=== PATIENT | male | born 1950 | race Asian ===

== ENCOUNTER 2018-09-08 10:23 | Day surgery (SDC) | payer OTHER ==
[~2018-09-08] VITALS: Ht 170.2 cm; Wt 81.6 kg
[2018-09-08] VITALS (8 sets, daily range): BP systolic 118–128; BP diastolic 74–86
--- NOTE | 2018-09-08 07:19 | Pre-Procedure Note/Attestation ---
Pre-Procedure Note/Attestation Complete Prior to Procedure Planned Procedure: left Procedure Narrative: Removal of cataract and placement of intraocular lens left eye Indications for Procedure Pre-Operative Diagnosis: Cataract, left eye Attestation I attest that I discussed the nature of the procedure; its benefits; risks and complications; and alternatives (and the risks and benefits of such alternatives ), prior to the procedure, with the patient (or the patient's legal equal opportunity representative). I attest that, if there was a reasonable possibility of needing a blood transfusion, the patient (or the patient's legal equal opportunity representative) was given the [facility] standardized written summary, pursuant to the Scooter Xavi Blood Safety Act ([place] Health and Safety Code # 1645, as amended). I attest that I re-evaluated the patient just prior to the surgery and that there has been no change in the patient's H&P, except as documented below: Víctor Will MD Sep 08, 2018 07:19
[2018-09-08] MEDS ORDERED: Ciprofloxacin Opth Soln 2.5ml ONE (10:59)
[2018-09-08] MEDS ORDERED: Tropicamide 1% Opth 15ml Soln ONE (10:59)
[2018-09-08] MEDS ORDERED: Phenylephrine 10% Opth Soln 5ml ONE (10:59)
[2018-09-08] MEDS ORDERED: Tobradex Opth Susp 2.5ml ONE (10:59)
[2018-09-08] MEDS ORDERED: Cyclopentolate 1% Opth Sol 2ml ONE (10:59)
[2018-09-08] MEDS ORDERED: Akten 3.5% 1ml Btl ONE (10:59)
[2018-09-08] MEDS: Tropicamide 1% Opth 15ml Soln LEFT EYE SCH ×3 (11:02→11:22)
[2018-09-08] MEDS: Akten 3.5% 1ml Btl LEFT EYE SCH ×3 (11:03→11:23)
[2018-09-08] MEDS: Tobradex Opth Susp 2.5ml LEFT EYE SCH ×3 (11:03→11:22)
[2018-09-08] MEDS: Ciprofloxacin Opth Soln 2.5ml LEFT EYE SCH ×3 (11:03→11:23)
[2018-09-08] MEDS: Phenylephrine 10% Opth Soln 5ml LEFT EYE SCH ×3 (11:03→11:22)
[2018-09-08] MEDS: Cyclopentolate 1% Opth Sol 2ml LEFT EYE SCH ×3 (11:03→11:22)
[2018-09-08 11:31] LABS: BASOPHILS % (AUTO) 1.3 % (0.0-2.0); EOSINOPHILS % (AUTO) 3.2 % (0.0-3.0); HEMATOCRIT 46.7 % (42.0-52.0); HEMOGLOBIN 14.9 G/DL (14.2-18.0); LYMPHOCYTES % (AUTO) 25.6 % (20.0-45.0); MEAN CORPUSCULAR VOLUME 95 FL (80-99); MONOCYTES % (AUTO) 8.2 % (1.0-10.0); NEUTROPHILS % (AUTO) 61.7 % (45.0-75.0); PLATELET COUNT 220 K/UL (150-450); RED BLOOD COUNT 4.93 M/UL (4.70-6.10); RED CELL DISTRIBUTION WIDTH 11.5 % (11.6-14.8); WHITE BLOOD COUNT 6.5 K/UL (4.8-10.8)
[2018-09-08] MEDS ORDERED: Pred Forte 1% Opth Susp 1ml ONE (11:33)
[2018-09-08] MEDS ORDERED: Dexamethasone 4mg/ml vial ONE (11:33)
[2018-09-08] MEDS ORDERED: Lidocaine 1% MPF 10mg/ml 5ml ONE ×2 (11:33→12:05)
[2018-09-08] MEDS ORDERED: Lidocaine 4% Amp ONE (11:33)
[2018-09-08] MEDS ORDERED: Carbachol 0.01% Op Soln 1.5ml vial ONE (11:33)
[2018-09-08] MEDS ORDERED: Maxitrol Opth Oint 3.5gm ONE (11:33)
[2018-09-08] MEDS ORDERED: EPINEPHrine 1mg/1ml Amp ONE (11:33)
[2018-09-08] MEDS ORDERED: Tetracaine 0.5% Opth 4ml Soln ONE (11:34)
[2018-09-08] MEDS ORDERED: Bupivacaine 0.75% 30ml vial INJ ONE (11:34)
[2018-09-08] MEDS ORDERED: BSS 15ml BTL ONE (11:34)
[2018-09-08] MEDS ORDERED: BSS 500ml btl ONE (11:34)
[2018-09-08] MEDS ORDERED: Povidone-Iodine 5% opth solution ONE (11:34)
[2018-09-08] MEDS ORDERED: Sodium Hyaluronate 10 mg/ml 0.85ml ONE ×2 (11:34→13:07)
[2018-09-08 11:38] LABS: ANION GAP 9 mmol/L (5-15); BLOOD UREA NITROGEN 19 mg/dL (7-18); CALCIUM 9.2 MG/DL (8.5-10.1); CARBON DIOXIDE 26 MMOL/L (21-32); CHLORIDE 105 MMOL/L (98-107); SODIUM 140 MMOL/L (136-145)
[2018-09-08] MEDS ORDERED: LOSARTAN POTASS50 MG ORAL (11:48)
[2018-09-08] MEDS ORDERED: PROBENECID PO (11:48)
[2018-09-08] MEDS ORDERED: CRESTOR40 MG ORAL (11:48)
[2018-09-08] MEDS ORDERED: Fluorescein Strips ONE (11:55)
[2018-09-08] MEDS ORDERED: LR 1000ml 1,000 ML IVLG SCH (11:59)
[2018-09-08] MEDS ORDERED: LR 1000ml ONE (12:00)
[2018-09-08] MEDS ORDERED: Hydromorphone 0.5mg/0.5ml inj IVP PRN (12:00)
[2018-09-08] MEDS ORDERED: LORazepam Inj 2mg/ml 1ml IV PRN (12:00)
[2018-09-08] MEDS ORDERED: Propofol 200mg/20ml IV ONE (12:00)
[2018-09-08] MEDS ORDERED: Ketorolac 30mg Inj IV PRN ×2 (12:00)
[2018-09-08] MEDS ORDERED: Atropine Sulfate 0.4mg/ml inj IVP PRN (12:00)
[2018-09-08] MEDS ORDERED: oxyCODONE HCL/Acetaminophen 5/325mg ORAL PRN (12:00)
[2018-09-08] MEDS ORDERED: DiphenhydrAMINE 50mg/ml Inj IVP PRN (12:00)
[2018-09-08] MEDS ORDERED: Meperidine 50mg/ml Inj(FOR RIGORS ONLY) IVP PRN (12:00)
[2018-09-08] MEDS ORDERED: Norco 5mg/325mg tab ORAL PRN (12:00)
[2018-09-08] MEDS ORDERED: Metoclopramide 10mg/2ml Inj IVP PRN (12:00)
[2018-09-08] MEDS ORDERED: HYDROcodone/Acetamin 7.5/325 tab ORAL PRN (12:00)
[2018-09-08] MEDS ORDERED: fentaNYL 100 mcg/2 mL IV PRN (12:00)
[2018-09-08] MEDS ORDERED: Midazolam 2mg/2ml Inj IVP PRN (12:00)
--- NOTE | 2018-09-08 12:02 | Anethesia Preoperative Eval ---
Anesthesia Pre-op PMH/ROS General Date of Evaluation: Sep 08, 2018 Time of Evaluation: 12:11 Anesthesiologist: Paul ASA Score: ASA 3 Mallampati Score Class I : Soft palate, uvula, fauces, pillars visible Class II: Soft palate, uvula, fauces visible Class III: Soft palate, base of uvula visible Class IV: Only hard plate visible Mallampati Classification: Class II Surgeon: Nicolette Diagnosis: Cataract OS Surgical Procedure: Cat Ext IOL OS Anesthesia History: none Family History: no anesthesia problems Allergies: Coded Allergies: ALLOPURINOL (Verified Allergy, Severe, 09/08/18) HIVES LEVOFLOXACIN (Verified Allergy, Severe, 09/08/18) SKIN PEELING PENICILLINS (Verified Allergy, Severe, 09/08/18) HIVES SULFA (SULFONAMIDE ANTIBIOTICS) (Verified Allergy, Severe, 09/08/18) HIVES Medications: see eMAR Patient NPO?: Yes Past Medical History Cardiovascular: Reports: HTN, other - HL Gastrointestinal/Genitourinary: Reports: other - BPH HEENT: Reports: cataract (L), cataract (R) Musculoskeletal/Integumentary: Reports: other - Gout Anesthesia Pre-op Phys. Exam Physician Exam Last Vital Signs Date Time Temp Pulse Resp B/P (MAP) Pulse Ox O2 Delivery O2 Flow Rate FiO2 09/08/18 11:43 Room Air 09/08/18 11:39 97.8 68 18 128/78 98 Constitutional: NAD Neurologic: CN 2-12 intact Cardiovascular: RRR Respiratory: CTA Gastrointestinal: S/NT/ND Airway Exam Mallampati Score: Class II MO: limited ROM: limited Teeth: missing, intact Anesthesia Pre-op A/P Labs Hematology Test 09/08/18 11:15 White Blood Count 6.5 K/UL (4.8-10.8) Red Blood Count 4.93 M/UL (4.70-6.10) Hemoglobin 14.9 G/DL (14.2-18.0) Hematocrit 46.7 % (42.0-52.0) Mean Corpuscular Volume 95 FL (80-99) Mean Corpuscular Hemoglobin 30.3 PG (27.0-31.0) Mean Corpuscular Hemoglobin Concent 32.0 G/DL (32.0-36.0) Red Cell Distribution Width 11.5 % (11.6-14.8) L Platelet Count 220 K/UL (150-450) Mean Platelet Volume 6.6 FL (6.5-10.1) Neutrophils (%) (Auto) 61.7 % (45.0-75.0) Lymphocytes (%) (Auto) 25.6 % (20.0-45.0) Monocytes (%) (Auto) 8.2 % (1.0-10.0) Eosinophils (%) (Auto) 3.2 % (0.0-3.0) H Basophils (%) (Auto) 1.3 % (0.0-2.0) Chemistry Test 09/08/18 11:15 Sodium Level 140 MMOL/L (136-145) Potassium Level 4.0 MMOL/L (3.5-5.1) Chloride Level 105 MMOL/L (98-107) Carbon Dioxide Level 26 MMOL/L (21-32) Anion Gap 9 mmol/L (5-15) Blood Urea Nitrogen 19 mg/dL (7-18) H Creatinine 1.0 MG/DL (0.55-1.30) Estimat Glomerular Filtration Rate > 60 mL/min (>60) Glucose Level 109 MG/DL (74-106) H Calcium Level 9.2 MG/DL (8.5-10.1) Risk Assessment & Plan Assessment: ASA 3 Plan: GA Status Change Before Surgery: Johnson Jacob MD Sep 08, 2018 12:02
--- NOTE | 2018-09-08 12:03 | Immediate Post-Op Evaluation ---
Immediate Post-Op Evalulation Immediate Post-Op Evalulation Procedure: Cat Ext IOL OS Date of Evaluation: Sep 08, 2018 Time of Evaluation: 13:40 IV Fluids: 300 LR Blood Products: 0 Estimated Blood Loss: 1 Urinary Output: 0 Blood Pressure Systolic: 124 Blood Pressure Diastolic: 85 Pulse Rate: 65 Respiratory Rate: 16 O2 Sat by Pulse Oximetry: 99 Temperature (Fahrenheit): 97.1 Pain Score (1-10): 1 Nausea: No Vomiting: No Complications 0 Patient Status: awake, reacts, patent, none Hydration Status: adequate Johnson Miller MD Sep 08, 2018 12:03
--- NOTE | 2018-09-08 12:04 | 48 Hour Post Anesthesia Eval ---
Post Anesthesia Evaluation Procedure: Cat Ext IOL OS Date of Evaluation: Sep 08, 2018 Time of Evaluation: 15:42 Blood Pressure Systolic: 127 0: 79 Pulse Rate: 67 Respiratory Rate: 18 Temperature (Fahrenheit): 98.2 O2 Sat by Pulse Oximetry: 97 Airway: patent Nausea: No Vomiting: No Pain Intensity: 1 Hydration Status: adequate Cardiopulmonary Status: Stable Mental Status/LOC: patient returned to baseline Follow-up Care/Observations: 0 Post-Anesthesia Complications: 0 Follow-up care needed: ready to discharge Johnson Miller MD Sep 08, 2018 12:04
[2018-09-08] MEDS ORDERED: Sodium Chloride 10ml vial INJ ONE (12:05)
--- NOTE | 2018-09-08 13:54 | Discharge Instructions ---
Discharge Instructions Discharge Instructions Follow Up Orders Wear eye shield at all times Continue preop eye medications Followup tomorrow in Dr Will's office For Congestive Heart Failure Reminder Report to your physician any weight gain of 5 pounds or more in one week. Víctor Will MD Sep 08, 2018 13:54
--- NOTE | 2018-09-08 13:56 | Brief Operative Note ---
Immediate Post Operative Note Operative Note Pre-op Diagnosis: Cataract, left eye Procedure: Phaco PC IOL OS Post-op Diagnosis: same as pre-op - combined cataract, OS Surgeon: Karolyn Will MD MS Collection Clerk: none Anesthesiologist: Dr Miller Anesthesia: local, MAC Specimen: none Complications: none Fluids: see chart Implant(s) used?: Yes - german [id number] 19.0 Víctor Will MD Sep 08, 2018 13:56
--- NOTE | 2018-09-09 | Operative Note - Dictated ---
DATE OF OPERATION: 09/08/2018 SURGEON: Víctor Will M.D. ELECTROENCEPHALOGRAM TECHNOLOGIST SURGEON: None. ANESTHESIOLOGIST: Johnson Miller M.D. ANESTHESIA: Local/standby/monitored anesthesia care. PREOPERATIVE DIAGNOSIS: Cataract, combined, left eye. POSTOPERATIVE DIAGNOSIS: Cataract, combined, left eye. PROCEDURE: 1. Phacoemulsification of cataract, left eye. 2. Placement of posterior chamber intraocular lens, left eye (model [id number], [place], 19.0). SPECIMENS: None. COMPLICATIONS: None. INDICATIONS FOR SURGERY: The patient has had the painless progressive decrease in visual acuity in left eye secondary to cataract. The patient understands the risks of surgery including infection, bleeding, need for further surgery, loss of vision, no improvement in vision, loss of the eye, loss of life, glaucoma, retinal detachment, and understands these risks and elects to proceed with surgery. FINDINGS: The patient had a +2 to 3 nuclear sclerotic cataract as well as a +1 cortical cataract. OPERATIVE NOTE: After informed consent was obtained, the patient was brought into the operating room and placed in the supine position. Cardiac and respiratory monitors were attached. A time-out was performed and all criteria were met and everyone in the room agreed. The left eye was then draped and prepped in sterile manner for ocular surgery. A lid speculum was placed in the eye. A 1% lidocaine preservative-free was injected at the approximate 2 o'clock limbus. A conjunctiva peritomy from approximately 1:30 to 2:30 was made and dissected posteriorly. Hemostasis was maintained with bipolar cautery. A 2.4 mm limbal incision was made centered approximately 2 o'clock and dissected anteriorly. A paracentesis was made at approximately 5:30 and Shugarcaine was injected into the anterior chamber followed by Healon. The anterior chamber was then entered using a 2.4 mm keratome through the limbal incision. An anterior capsulorrhexis was then performed. Hydrodissection and hydrodelineation of the lens was then performed. The lens was then phacoemulsified using divide and conquer four-quadrant technique. Residual cortical material was then aspirated. Healon was injected into the anterior chamber and capsular bag. The lens was taken from its package, placed into the cartridge and the cartridge was placed through the limbal incision, was injected into the capsular bag. The trailing haptic was not tucked away optic, but then this was placed into the capsular bag using angled forceps. The lens was centered nicely in the capsular bag and the Healon was aspirated from the anterior chamber and capsular bag. One 10-0 nylon interrupted suture was placed and the knot was rotated and buried. Wounds were checked and found to be watertight. The intraocular lens was visualized directly and both haptics were in the bag along with the optic. The lens was centered along the 9 o'clock to 3 o'clock axis. The conjunctiva was closed with forceps cautery, and the lid speculum and drapes were removed from the eye and drops of Pred Forte and ciprofloxacin was applied to the eye followed by Maxitrol ointment and then shield. The patient tolerated the procedure well and left the operating room awake, alert, and in stable condition. Víctor Will M.D. DR: LUCILLE JOB#: [id number] CC:
== END 2018-09-08 14:55 | disposition home or self-care (01) ==
LOC: SUR 10:23
DX: H25.812 Combined forms of age-related cataract, left eye (principal); M10.9 Gout, unspecified; E78.5 Hyperlipidemia, unspecified; I10 Essential (primary) hypertension; K21.9 Gastro-esophageal reflux disease without esophagitis; M19.90 Unspecified osteoarthritis, unspecified site; N40.0 Benign prostatic hyperplasia without lower urinary tract symptoms; Z88.3 Allergy status to other anti-infective agents; Z88.0 Allergy status to penicillin; Z88.2 Allergy status to sulfonamides; Z88.8 Allergy status to other drugs, medicaments and biological substances
CPT/HCPCS: 36415; 66984; 80048; 85025; J0171; J1100; J2250; J2704; V2632; 94003; 94150